=== PATIENT | male | born 1970 | race Caucasian/White ===

== ENCOUNTER → 2024-04-23 | Outpatient (CLI) | payer MEDICAID, SELFPAY ==
--- NOTE | 2024-04-23 17:05 | XR_ITS ---
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
== END | disposition home or self-care (01) ==
PROVIDERS: Referring Provider Nurse Practitioner Primary Care; Visit Provider Nurse Practitioner Primary Care
DX: M84.442A Pathological fracture, left hand, initial encounter for fracture (principal)
CPT/HCPCS: 73120

== ENCOUNTER → 2024-05-31 | Outpatient (CLI) | payer MEDICAID, SELFPAY ==
--- NOTE | 2024-05-31 09:15 | XR_ITS ---
Examination: Transrectal prostate sonography TECHNIQUE: Transrectal sonographic images prostate Exam date and time: May 31, 2024 0942 hours INDICATIONS: Frequent urination 2 months FINDINGS: Prostate 4.9 x 2.9 x 4.3 cm volume 31 cc Small calcifications, no prostate nodules IMPRESSION: Prostate volume 31 cc no prostate nodules
== END | disposition home or self-care (01) ==
PROVIDERS: PCP Nurse Practitioner Primary Care; Referring Provider Nurse Practitioner Primary Care; Visit Provider Nurse Practitioner Primary Care
DX: R97.20 Elevated prostate specific antigen [PSA] (principal)
CPT/HCPCS: 76872